=== PATIENT | male | born 1985 | race Caucasian/White ===

== ENCOUNTER 2021-01-12 17:43 | Emergency (ER) | payer OTHER, SELFPAY ==
[2021-01-12 17:44] VITALS: BP 131/80; PULSE 127; RESP 18; TEMP 37.1; O2SAT 98
[2021-01-12] MEDS: EPINEPHrine HCL INJ 1 MG/ML AMPUL 0.3 MG IM (17:57)
[2021-01-12] MEDS: diphenhydrAMINE HCl INJ 50 MG/ML VIAL IV PUSH (17:59)
[2021-01-12] MEDS: methylPREDNISolone SOD SUCC 125 MG VIAL IV PUSH (18:00)
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
[2021-01-12] MEDS: FAMOTIDINE 20 MG/2 ML VIAL 40 MG IV PUSH (18:14)
[2021-01-12] MEDS: SODIUM CHLORIDE 0.9% IV 1,000 ML 999 ML IV CONT (18:14)
[2021-01-12 19:30] VITALS: BP 108/62; PULSE 91; RESP 18; O2SAT 98
== END 2021-01-12 19:32 | disposition home or self-care (01) ==
LOC: ANHED 18:29
PROVIDERS: Emergency Provider Emergency Medicine
DX: T63.441A Toxic effect of venom of bees, accidental (unintentional), initial encounter (principal)
CPT/HCPCS: 96361; 96372; 96374; 96375; 99284; J0171; J1200; J2930; J7030

== ENCOUNTER 2024-09-12 21:13 | Emergency (ER) | payer OTHER, SELFPAY ==
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
[2024-09-12 21:20] VITALS: BP 143/78; PULSE 91; RESP 17; TEMP 36.5; O2SAT 99
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
[2024-09-13 02:58] VITALS: BP 124/96; PULSE 77; RESP 16; O2SAT 100
== END 2024-09-13 03:00 | disposition home or self-care (01) ==
PROVIDERS: Emergency Provider Student in an Organized Health Care Education/Training Program
DX: S92.321A Displaced fracture of second metatarsal bone, right foot, initial encounter for closed fracture (principal); S92.331A Displaced fracture of third metatarsal bone, right foot, initial encounter for closed fracture; S92.341A Displaced fracture of fourth metatarsal bone, right foot, initial encounter for closed fracture; W22.8XXA Striking against or struck by other objects, initial encounter
CPT/HCPCS: 73630; 99284